=== PATIENT | male | born 1950 | race Caucasian/White ===

== ENCOUNTER 2018-07-25 08:52 | Inpatient (IN) | payer MEDICARE ==
[~2018-07-25] VITALS: Ht 177.8 cm; Wt 84.6 kg
[2018-07-25] MEDS ORDERED: SODIUM CHLORIDE FLUSH 10ML SYR IVF ONE (09:30)
[2018-07-25 09:58] LABS: MEAN CORPUSCULAR HEMOGLOBIN 33.3 pg (27.5-34.5); MEAN CORPUSCULAR HGB CONC 32.7 g/dL (33.2-36.2); MEAN CORPUSCULAR VOLUME 101.6 fL (81-97); RED BLOOD COUNT 2.15 x10^6/uL (4.38-5.82)
[2018-07-25 09:59] LABS: INTERNATIONAL NORMALIZED RATIO 1.05 (0.93-1.1)
--- NOTE | 2018-07-25 10:00 | NUR ---
pt upright on gurney awake & comfortable, watching TV, responds approp to staff, NAD, comfort measures provided, at BS, call light within reach.
[2018-07-25 10:30] LABS: PLATELET COUNT 11 x10^3/uL (130-400)
[2018-07-25 10:31] LABS: MD YES
[2018-07-25 10:32] LABS: BAND#(MANUAL) 0.03 x10^3/uL; BANDS%(MANUAL) 1 % (0-7); EOS#(MANUAL) 0.03 x10^3/uL (0.0-0.4); EOS% (MANUAL) 1 % (1-7); LYMPH#(MANUAL) 1.95 x10^3/uL (1-3.4); LYMPHS% (MANUAL) 65 % (22-44); MONOS#(MANUAL) 0.15 x10^3/uL (0.3-2.7); MONOS% (MANUAL) 5 % (2-9); SEG#(MANUAL) 0.84 x10^3/uL (1.8-6.8); SEGS% (MANUAL) 28 % (42-75)
[2018-07-25 10:35] LABS: ANISOCYTOSIS 1+; OVALOCYTES 1+
[2018-07-25 10:36] LABS: POLYCHROMASIA 1+
[2018-07-25 10:37] LABS: <PLATELET ESTIMATE> DECREASED; <PLT MORPHOLOGY> NORMAL PLT MORPH; TEAR DROPS 1+
[2018-07-25] MEDS ORDERED: Ramipril (10:49)
[2018-07-25] MEDS ORDERED: Albuterol Inhaler (10:49)
[2018-07-25] MEDS ORDERED: Hydrochlorothiazide (10:49)
[2018-07-25 10:59] LABS: ALBUMIN 3.5 g/dL (3.4-5.0); ANION GAP 3 mmol/L (5-15); CALCIUM 8.2 mg/dL (8.5-10.1); CHLORIDE 112 mmol/L (98-107); CREATININE 0.99 mg/dL (0.7-1.3)
--- NOTE | 2018-07-25 11:03 | NUR ---
pt remains upright on gurney awake & comfortable, watching TV, responds approp to staff, NAD, comfort measures provided, at BS, call light within reach.
--- NOTE | 2018-07-25 12:03 | NUR ---
pt upright on gurney awake & comfortable, watching TV, responds approp to staff, NAD, comfort measures provided, at BS, call light within reach. [facility] at BS for consult
[2018-07-25] MEDS ORDERED: ONDANSETRON 2MG/ML, 2ML IVPush PRN (12:30)
[2018-07-25] MEDS ORDERED: ACETAMINOPHEN 325 MG TABLET PO PRN (12:30)
[2018-07-25] MEDS ORDERED: ONDANSETRON ODT 4 MG PO PRN (12:30)
--- NOTE | 2018-07-25 13:12 | NUR ---
Pt to be admitted to medical, room 342. Report called to Maddy.
[2018-07-25 13:16] LABS: HEMOGLOBIN A1C 5.2 % (4.2-6.3)
[2018-07-25 13:28] LABS: FOLATE LEVEL 18.3 ng/mL (3.1-17.5); THYROID STIMULATING HORMONE 1.09 mIU/L (0.358-3.740)
[2018-07-25 13:40] VITALS: BP 110/70
[2018-07-25] MEDS: SODIUM CHLORIDE 0.9% 1,000 ML IV SCH (14:12)
[2018-07-25 17:55] LABS: ALBUMIN 3.4 g/dL (3.4-5.0); BILIRUBIN, DIRECT 0.1 mg/dL (0.1-0.2)
[2018-07-25 17:57] LABS: BILIRUBIN,INDIRECT 0.4 mg/dL (0.0-2.0); BILIRUBIN,TOTAL 0.5 mg/dL (0.2-1.0)
[2018-07-25 18:39] LABS: MEAN CORPUSCULAR HGB CONC 33.2 g/dL (33.2-36.2); MEAN CORPUSCULAR VOLUME 102.5 fL (81-97); RED BLOOD COUNT 2.15 x10^6/uL (4.38-5.82); RED CELL DISTRIBUTION WIDTH 19.4 % (9.4-14.8)
[2018-07-25 18:40] LABS: MEAN PLATELET VOLUME 8.7 fL (7.4-10.4)
[2018-07-25 18:42] LABS: MD YES
[2018-07-25 18:43] LABS: PLATELET COUNT 18 x10^3/uL (130-400)
[2018-07-25 18:50] LABS: LYMPH#(MANUAL) 2.44 x10^3/uL (1-3.4); LYMPHS% (MANUAL) 66 % (22-44); MONOS#(MANUAL) 0.07 x10^3/uL (0.3-2.7); MONOS% (MANUAL) 2 % (2-9); SEG#(MANUAL) 1.18 x10^3/uL (1.8-6.8); SEGS% (MANUAL) 32 % (42-75)
[2018-07-25 18:51] LABS: OVALOCYTES 1+; POLYCHROMASIA 1+
[2018-07-25 18:52] LABS: <PLATELET ESTIMATE> DECREASED; <PLT MORPHOLOGY> NORMAL PLT MORPH; TEAR DROPS 1+; TOXIC GRAN 1+
[2018-07-25 19:14] LABS: MICROSCOPIC AUTO
[2018-07-25 19:25] LABS: CULTURE INDICATED? NO
[2018-07-25 20:55] VITALS: BP 113/69
[2018-07-26 01:52] VITALS: BP 96/60
[2018-07-26] MEDS: SODIUM CHLORIDE 0.9% 1,000 ML IV SCH ×2 (01:56→15:58)
[2018-07-26 05:02] LABS: MEAN CORPUSCULAR HEMOGLOBIN 34.8 pg (27.5-34.5); MEAN CORPUSCULAR HGB CONC 33.8 g/dL (33.2-36.2); MEAN CORPUSCULAR VOLUME 103.1 fL (81-97); RED BLOOD COUNT 1.94 x10^6/uL (4.38-5.82); RED CELL DISTRIBUTION WIDTH 19.7 % (9.4-14.8)
[2018-07-26 05:08] LABS: CHLORIDE 115 mmol/L (98-107)
[2018-07-26 05:18] LABS: ALANINE AMINOTRANSFERASE 23 U/L (12-78); ALBUMIN 3.1 g/dL (3.4-5.0); ALKALINE PHOSPHATASE 61 U/L (45-117); ANION GAP 4 mmol/L (5-15); BILIRUBIN,TOTAL 0.4 mg/dL (0.2-1.0); CALCIUM 7.9 mg/dL (8.5-10.1); CHOL/HDL RATIO 4.8; CHOLESTEROL, TOTAL 138 mg/dL (140-239); CREATININE 0.89 mg/dL (0.7-1.3); HDL CHOL % 21 % (26-37); HDL CHOLESTEROL (DIRECT) 29 mg/dL (40-60); LDL CHOLESTEROL,CALCULATED 88 mg/dL (54-169); TOTAL PROTEIN 6.3 g/dL (6.4-8.2); TRIGLYCERIDES 106 mg/dL (50-200); VLDL CHOLESTEROL 21 mg/dL (0-25)
[2018-07-26 06:46] LABS: MD YES; MEAN PLATELET VOLUME 9.2 fL (7.4-10.4)
[2018-07-26 06:48] LABS: PLATELET COUNT 14 x10^3/uL (130-400)
[2018-07-26 06:49] LABS: <PLATELET ESTIMATE> DECREASED; <PLT MORPHOLOGY> NORMAL PLT MORPH; ANISOCYTOSIS 1+; BAND#(MANUAL) 0.03 x10^3/uL; BANDS%(MANUAL) 1 % (0-7); EOS#(MANUAL) 0.03 x10^3/uL (0.0-0.4); EOS% (MANUAL) 1 % (1-7); LYMPH#(MANUAL) 1.97 x10^3/uL (1-3.4); LYMPHS% (MANUAL) 58 % (22-44); MONOS#(MANUAL) 0.14 x10^3/uL (0.3-2.7); MONOS% (MANUAL) 4 % (2-9); NRBC % (MANUAL) 1 % (0-1); OVALOCYTES 1+; POLYCHROMASIA 1+; SEG#(MANUAL) 1.22 x10^3/uL (1.8-6.8); SEGS% (MANUAL) 36 % (42-75); TEAR DROPS 1+
[2018-07-26 06:54] LABS: MICROCYTOSIS 1+
[2018-07-26 09:02] VITALS: BP 109/73
[2018-07-26] MEDS ORDERED: FENTANYL PF 100 MCG/2ML ONE (09:29)
[2018-07-26] MEDS ORDERED: MIDAZOLAM 1 MG/ML, 5ML ONE (09:30)
[2018-07-26] MEDS ORDERED: FLUMAZENIL 0.1 MG/1 ML, 5ML ONE (09:30)
[2018-07-26] MEDS ORDERED: NALOXONE 1 MG/ML, 2ML ONE (09:30)
[2018-07-26] MEDS ORDERED: LIDOCAINE-MPF 1%, 5ML ONE (09:34)
[2018-07-26 14:18] VITALS: BP 115/71
[2018-07-26 14:37] VITALS: BP 119/73
[2018-07-26 15:52] VITALS: BP 117/72
[2018-07-26 19:07] VITALS: BP 108/71
[2018-07-27] VITALS (11 sets, daily range): BP systolic 91–127; BP diastolic 51–76
[2018-07-27] MEDS: SODIUM CHLORIDE 0.9% 1,000 ML IV SCH ×2 (04:12→15:57)
[2018-07-27 04:53] LABS: ALBUMIN 3.3 g/dL (3.4-5.0); ANION GAP 5 mmol/L (5-15); CALCIUM 7.9 mg/dL (8.5-10.1); CHLORIDE 113 mmol/L (98-107)
[2018-07-27 04:58] LABS: ALANINE AMINOTRANSFERASE 26 U/L (12-78); ALKALINE PHOSPHATASE 60 U/L (45-117); BILIRUBIN,TOTAL 0.8 mg/dL (0.2-1.0); CREATININE 0.94 mg/dL (0.7-1.3); TOTAL PROTEIN 6.3 g/dL (6.4-8.2)
[2018-07-27 05:20] LABS: MEAN CORPUSCULAR HEMOGLOBIN 33.2 pg (27.5-34.5); MEAN CORPUSCULAR VOLUME 100.4 fL (81-97); MEAN PLATELET VOLUME 8.7 fL (7.4-10.4); RED CELL DISTRIBUTION WIDTH 20.2 % (9.4-14.8)
[2018-07-27 05:21] LABS: MD YES; PLATELET COUNT 16 x10^3/uL (130-400)
[2018-07-27 05:23] LABS: LYMPH#(MANUAL) 2.01 x10^3/uL (1-3.4); LYMPHS% (MANUAL) 59 % (22-44); MONOS#(MANUAL) 0.27 x10^3/uL (0.3-2.7); MONOS% (MANUAL) 8 % (2-9); SEG#(MANUAL) 1.12 x10^3/uL (1.8-6.8); SEGS% (MANUAL) 33 % (42-75)
[2018-07-27 05:24] LABS: ANISOCYTOSIS 1+; MICROCYTOSIS 1+; OVALOCYTES 1+; POLYCHROMASIA 1+; TEAR DROPS 1+
[2018-07-27 05:25] LABS: <PLATELET ESTIMATE> DECREASED; <PLT MORPHOLOGY> NORMAL PLT MORPH
[2018-07-27] MEDS ORDERED: SODIUM CHLORIDE 0.9%, 500ML IVBOLUS ONE (08:30)
[2018-07-27] MEDS ORDERED: ACETAMINOPHEN 325 MG TABLET PO ONE (11:30)
[2018-07-27] MEDS ORDERED: DIPHENHYDRAMINE 12.5MG/5ML, 10ML UDC PO ONE (11:30)
[2018-07-27] MEDS ORDERED: FAMOTIDINE 20 MG/2 ML IVPush ONE (15:30)
[2018-07-27] MEDS ORDERED: DIPHENHYDRAMINE 25 MG CAPSULE PO ONE (15:30)
[2018-07-27] MEDS ORDERED: SODIUM CHLORIDE 0.9% 500 ML IV SCH (15:30)
== END 2018-07-27 20:30 | disposition home or self-care (01) | DRG 809 ==
LOC: ED 09:54 → EDIP 12:28 → 3NW 13:19
PROVIDERS: ADMIT Internal Medicine; ATTEND Internal Medicine
PROC: 07DR3ZX Extraction of Iliac Bone Marrow, Percutaneous Approach, Diagnostic (ICD-10-PCS; principal; 2018-07-26)
PROC: 30233N1 Transfusion of Nonautologous Red Blood Cells into Peripheral Vein, Percutaneous Approach (ICD-10-PCS; 2018-07-26)
PROC: 30233R1 Transfusion of Nonautologous Platelets into Peripheral Vein, Percutaneous Approach (ICD-10-PCS; 2018-07-27)
DX: D61.818 Other pancytopenia (principal); B15.9 Hepatitis A without hepatic coma; B19.10 Unspecified viral hepatitis B without hepatic coma; T80.61XA Other serum reaction due to administration of blood and blood products, initial encounter; D75.89 Other specified diseases of blood and blood-forming organs; B19.20 Unspecified viral hepatitis C without hepatic coma; D53.9 Nutritional anemia, unspecified; E11.65 Type 2 diabetes mellitus with hyperglycemia; F12.90 Cannabis use, unspecified, uncomplicated; J45.909 Unspecified asthma, uncomplicated; N40.0 Benign prostatic hyperplasia without lower urinary tract symptoms; Z82.49 Family history of ischemic heart disease and other diseases of the circulatory system; Z87.891 Personal history of nicotine dependence; Z83.3 Family history of diabetes mellitus; I25.2 Old myocardial infarction; T45.8X5A Adverse effect of other primarily systemic and hematological agents, initial encounter
CPT/HCPCS: 36415; 38222; 77012; 80048; 80053; 80061; 80076; 81001; 82040; 82607; 82728; 82746; 83010; 83036; 83540; 83550; 83615; 83735; 84100; 84443; 84466; 84550; 85025; 85060; 85097; 85384; 85610; 85730; 86078; 86704; 86706; 86803; 86850; 86900; 86923; 87040; 87205; 87340; 87521; 87522; 87806; 88184; 88185; 88237; 88264; 88280; 88305; 88311; 88313; 88341; 88342; 88374; 99156; 99157; 99285; G0378; J2250; J3010; G0475; J2310; J3490; J7030; J7040; P9037; P9040; Q0163

== ENCOUNTER 2018-12-07 07:15 | Day surgery (SDC) | payer MEDICARE ==
[~2018-12-07] VITALS: Ht 177.8 cm; Wt 83.6 kg
[~2018-12-07 07:15] MED LIST: Albuterol Inhaler; ERGO500017 PO; GLEC1TAB PO; Hydrochlorothiazide; Ramipril
[2018-12-07 08:13] VITALS: BP 118/83
[2018-12-07] MEDS ORDERED: MULT1CAP19 PO (08:15)
[2018-12-07] MEDS ORDERED: SODIUM CHLORIDE 0.9% 1,000 ML IV SCH (08:31)
[2018-12-07] MEDS ORDERED: MIDAZOLAM 1 MG/ML, 5ML ONE (09:20)
[2018-12-07] MEDS ORDERED: FLUMAZENIL 0.1 MG/1 ML, 5ML ONE (09:20)
[2018-12-07] MEDS ORDERED: FENTANYL PF 100 MCG/2ML ONE (09:20)
[2018-12-07] MEDS ORDERED: NALOXONE 1 MG/ML, 2ML ONE (09:20)
[2018-12-07 09:21] LABS: MEAN CORPUSCULAR HEMOGLOBIN 32.9 pg (27.5-34.5); MEAN CORPUSCULAR HGB CONC 33.1 g/dL (33.2-36.2); MEAN CORPUSCULAR VOLUME 99.4 fL (81-97); RED BLOOD COUNT 2.64 x10^6/uL (4.38-5.82); RED CELL DISTRIBUTION WIDTH 18.1 % (9.4-14.8)
[2018-12-07] MEDS ORDERED: LIDOCAINE-MPF 1%, 5ML ONE (09:25)
[2018-12-07 09:52] LABS: BASOPHILS # (AUTO) 0.01 x10^3/uL (0-0.1); BASOPHILS % (AUTO) 0 % (0-1); EOSINOPHILS # (AUTO) 0.02 x10^3/uL (0-0.4); EOSINOPHILS % (AUTO) 1 % (1-7); LYMPHOCYTES # (AUTO) 2.58 x10^3/uL (1-3.4); LYMPHOCYTES % (AUTO) 64 % (22-44); MD SCAN; MONOCYTES # (AUTO) 0.21 x10^3/uL (0.2-0.8); MONOCYTES % (AUTO) 5 % (2-9); NEUTROPHILS # (AUTO) 1.25 x10^3/uL (1.8-6.8); NEUTROPHILS % (AUTO) 31 % (42-75)
[2018-12-07 10:04] LABS: PLATELET COUNT 14 x10^3/uL (130-400)
== END 2018-12-07 12:50 | disposition home or self-care (01) ==
LOC: OUT 07:15
PROVIDERS: ATTEND Internal Medicine Hematology & Oncology
DX: D61.818 Other pancytopenia (principal); D53.9 Nutritional anemia, unspecified; F19.90 Other psychoactive substance use, unspecified, uncomplicated; Z86.19 Personal history of other infectious and parasitic diseases; Z87.891 Personal history of nicotine dependence; Z72.89 Other problems related to lifestyle
CPT/HCPCS: 36415; 38222; 77012; 85025; 85060; 85097; 88237; 88264; 88280; 88305; 88311; 88313; 99156; 99157; J2250; J3010; J7030; J2310

== ENCOUNTER 2019-01-28 19:19 | Inpatient (IN) | payer MEDICARE ==
[~2019-01-28] VITALS: Ht 177.8 cm; Wt 84.0 kg
[~2019-01-28 19:19] MED LIST changes: +MULT1CAP19 PO
--- NOTE | 2019-01-28 19:35 | NUR ---
FULLY MONITORED. SR.
[2019-01-28] MEDS ORDERED: SODIUM CHLORIDE FLUSH 10ML SYR IVF ONE (20:00)
[2019-01-28] MEDS ORDERED: SODIUM CHLORIDE 0.9% 1,000ML IVBOLUS ONE (20:00)
[2019-01-28 20:19] LABS: ALANINE AMINOTRANSFERASE 14 U/L (12-78); ALBUMIN 3.5 g/dL (3.4-5.0); ANION GAP 6 mmol/L (5-15); CALCIUM 8.5 mg/dL (8.5-10.1); CHLORIDE 110 mmol/L (98-107); CREATININE 1.09 mg/dL (0.7-1.3)
[2019-01-28 20:21] LABS: ALKALINE PHOSPHATASE 65 U/L (45-117); BILIRUBIN,TOTAL 0.4 mg/dL (0.2-1.0); TOTAL PROTEIN 7.1 g/dL (6.4-8.2)
[2019-01-28 20:38] LABS: MD YES; MEAN CORPUSCULAR HEMOGLOBIN 31.1 pg (27.5-34.5); MEAN CORPUSCULAR VOLUME 91.4 fL (81-97); MEAN PLATELET VOLUME 9.2 fL (7.4-10.4); RED BLOOD COUNT 2.23 x10^6/uL (4.38-5.82); RED CELL DISTRIBUTION WIDTH 21.5 % (9.4-14.8)
[2019-01-28 20:42] LABS: PLATELET COUNT 48 x10^3/uL (130-400)
[2019-01-28 20:47] LABS: ANISOCYTOSIS 1+; LYMPHS% (MANUAL) 100 % (22-44); MICROCYTOSIS 1+; POLYCHROMASIA 1+
[2019-01-28 20:48] LABS: <PLATELET ESTIMATE> DECREASED; <PLT MORPHOLOGY> NORMAL PLT MORPH
--- NOTE | 2019-01-28 21:26 | NUR ---
PLACED IN REVERSE ISO. MASKS IN ROOM.
--- NOTE | 2019-01-28 21:27 | NUR ---
CC UA SENT TO THE LAB.
[2019-01-28 21:36] LABS: MICROSCOPIC NOT IND
[2019-01-28 21:39] LABS: CULTURE INDICATED? NO
[2019-01-28] MEDS ORDERED: SODIUM CHLORIDE 0.9% 1,000 ML IV ONE (21:40)
--- NOTE | 2019-01-28 21:52 | NUR ---
BLOOD CONSENT SIGNED.
[2019-01-28] MEDS: CEFEPIME 1 GM in DEXTROSE 5% 50 ML IV SCH ×2 (21:59→22:33)
[2019-01-28] MEDS ORDERED: CEFEPIME 1 GM in DEXTROSE 5% 50 ML IV ONE (22:00)
[2019-01-28] MEDS ORDERED: SODIUM CHLORIDE FLUSH 10ML SYR IVF PRN (22:00)
--- NOTE | 2019-01-28 22:01 | NUR ---
MAXIPINE INFUSING TO THE FLOOR.
--- NOTE | 2019-01-28 22:05 | NUR ---
MED REC COMPLETED.
--- NOTE | 2019-01-28 22:06 | NUR ---
ID OF MAXIPINE STARTED. WILL FINISH INPT.
[2019-01-28 22:30] VITALS: BP 127/72
[2019-01-28] MEDS: SODIUM CHLORIDE 0.9% 1,000 ML IV SCH (22:32)
[2019-01-28] MEDS: LIDODERM 5% PATCH TD SCH (22:38)
[2019-01-28] MEDS: ACETAMINOPHEN 325 MG TABLET PO PRN (23:19)
[2019-01-28 23:21] VITALS: BP 118/68
[2019-01-28 23:45] VITALS: BP 129/71
[2019-01-29] VITALS (13 sets, daily range): BP systolic 105–128; BP diastolic 62–74
[2019-01-29 05:24] LABS: CHLORIDE 111 mmol/L (98-107); MEAN CORPUSCULAR HEMOGLOBIN 30.5 pg (27.5-34.5); MEAN CORPUSCULAR HGB CONC 34.1 g/dL (33.2-36.2); MEAN CORPUSCULAR VOLUME 89.4 fL (81-97); MEAN PLATELET VOLUME 9.3 fL (7.4-10.4); RED BLOOD COUNT 2.73 x10^6/uL (4.38-5.82); RED CELL DISTRIBUTION WIDTH 20.8 % (9.4-14.8)
[2019-01-29 05:27] LABS: PLATELET COUNT 43 x10^3/uL (130-400)
[2019-01-29 05:30] LABS: ALANINE AMINOTRANSFERASE 12 U/L (12-78); ALBUMIN 3.1 g/dL (3.4-5.0); ALKALINE PHOSPHATASE 52 U/L (45-117); ANION GAP 4 mmol/L (5-15); BILIRUBIN,TOTAL 1.1 mg/dL (0.2-1.0); CALCIUM 8.3 mg/dL (8.5-10.1); CREATININE 0.91 mg/dL (0.7-1.3); TOTAL PROTEIN 6.5 g/dL (6.4-8.2)
[2019-01-29 05:45] LABS: MD YES
[2019-01-29 05:48] LABS: ANISOCYTOSIS 1+; EOS#(MANUAL) 0.02 x10^3/uL (0.0-0.4); EOS% (MANUAL) 1 % (1-7); LYMPH#(MANUAL) 2.09 x10^3/uL (1-3.4); LYMPHS% (MANUAL) 95 % (22-44); MONOS#(MANUAL) 0.02 x10^3/uL (0.3-2.7); MONOS% (MANUAL) 1 % (2-9); NRBC % (MANUAL) 1 % (0-1); SEG#(MANUAL) 0.07 x10^3/uL (1.8-6.8); SEGS% (MANUAL) 3 % (42-75)
[2019-01-29 05:49] LABS: <PLATELET ESTIMATE> DECREASED; <PLT MORPHOLOGY> NORMAL PLT MORPH; MICROCYTOSIS 1+; OVALOCYTES 1+
[2019-01-29] MEDS: CEFEPIME 1 GM in DEXTROSE 5% 50 ML IV SCH ×2 (06:25→14:09)
[2019-01-29] MEDS: LIDODERM REMOVE PATCH NOTE XX SCH ×2 (09:38→22:30)
[2019-01-29] MEDS: ACETAMINOPHEN 325 MG TABLET PO PRN (12:58)
[2019-01-29] MEDS: SODIUM CHLORIDE 0.9% 1,000 ML IV SCH (16:04)
[2019-01-29 16:28] LABS: TROPONIN I < 0.015 ng/mL (0.000-0.045)
[2019-01-29] MEDS ORDERED: VANCOMYCIN PER PHARMACY MC PRN (16:30)
[2019-01-29] MEDS ORDERED: PHARMACOKINETIC MONITORING MC PRN (16:30)
[2019-01-29] MEDS ORDERED: VANCOMYCIN 1,700 MG in SODIUM CHLORIDE 0.9% 250 ML IV SCH (16:30)
[2019-01-29] MEDS ORDERED: VANCOMYCIN PMX 1GM/200ML 200 ML IV ONE (16:30)
[2019-01-29] MEDS ORDERED: OMNIPAQUE 350 MG/ML, 100ML BOTTLE ONE (16:38)
[2019-01-29] MEDS: PIPERACILLIN/TAZO/PMX 3.375GM 50 ML IV SCH ×2 (17:00→22:33)
[2019-01-29] MEDS ORDERED: HYDROcodone/APAP 5/325 TABLET ONE (17:09)
[2019-01-29] MEDS: HYDROcodone/APAP 5/325 TABLET PO PRN ×2 (17:10→20:50)
[2019-01-29] MEDS ORDERED: MORPHINE SULFATE 4 MG/ML, 1ML IVPush PRN (17:30)
[2019-01-29] MEDS ORDERED: KETOROLAC 30 MG/1 ML IVPush PRN (17:30)
[2019-01-29 22:27] LABS: TROPONIN I < 0.015 ng/mL (0.000-0.045)
[2019-01-29] MEDS: LIDODERM 5% PATCH TD SCH (22:30)
[2019-01-30 01:25] VITALS: BP 120/67
[2019-01-30] MEDS: PIPERACILLIN/TAZO/PMX 3.375GM 50 ML IV SCH ×4 (04:32→22:31)
[2019-01-30] MEDS: SODIUM CHLORIDE 0.9% 1,000 ML IV SCH ×2 (04:32→18:43)
[2019-01-30 04:44] LABS: ALANINE AMINOTRANSFERASE 9 U/L (12-78); ALBUMIN 2.7 g/dL (3.4-5.0); ANION GAP 2 mmol/L (5-15); CHLORIDE 113 mmol/L (98-107); CREATININE 0.95 mg/dL (0.7-1.3)
[2019-01-30 04:48] LABS: MEAN CORPUSCULAR HEMOGLOBIN 30.2 pg (27.5-34.5); MEAN CORPUSCULAR HGB CONC 33.6 g/dL (33.2-36.2); MEAN CORPUSCULAR VOLUME 89.7 fL (81-97); RED BLOOD COUNT 2.58 x10^6/uL (4.38-5.82); RED CELL DISTRIBUTION WIDTH 20.9 % (9.4-14.8)
[2019-01-30 04:49] LABS: ALKALINE PHOSPHATASE 45 U/L (45-117); BILIRUBIN,TOTAL 0.8 mg/dL (0.2-1.0); TOTAL PROTEIN 6.1 g/dL (6.4-8.2); TROPONIN I < 0.015 ng/mL (0.000-0.045)
[2019-01-30 05:43] LABS: MEAN PLATELET VOLUME 8.1 fL (7.4-10.4)
[2019-01-30 05:44] LABS: PLATELET COUNT 33 x10^3/uL (130-400)
[2019-01-30 05:53] LABS: MD YES
[2019-01-30 05:58] LABS: LYMPH#(MANUAL) 2.13 x10^3/uL (1-3.4); LYMPHS% (MANUAL) 97 % (22-44); MONOS#(MANUAL) 0.02 x10^3/uL (0.3-2.7); MONOS% (MANUAL) 1 % (2-9); SEG#(MANUAL) 0.04 x10^3/uL (1.8-6.8); SEGS% (MANUAL) 2 % (42-75)
[2019-01-30 05:59] LABS: <PLATELET ESTIMATE> DECREASED; <PLT MORPHOLOGY> NORMAL PLT MORPH; ANISOCYTOSIS 1+; MICROCYTOSIS 1+
[2019-01-30 06:50] VITALS: BP 109/65
[2019-01-30] MEDS: LIDODERM REMOVE PATCH NOTE XX SCH ×2 (09:57→22:30)
[2019-01-30 12:30] VITALS: BP 111/65
[2019-01-30] MEDS: VANCOMYCIN 1,700 MG in SODIUM CHLORIDE 0.9% 250 ML IV SCH (15:17)
[2019-01-30] MEDS: ACETAMINOPHEN 325 MG TABLET PO PRN (17:05)
[2019-01-30 20:00] VITALS: BP 111/66
[2019-01-30] MEDS: HYDROcodone/APAP 5/325 TABLET PO PRN (20:53)
[2019-01-30] MEDS: LIDODERM 5% PATCH TD SCH (22:30)
[2019-01-31 02:02] VITALS: BP 107/69
[2019-01-31 04:48] LABS: ANION GAP 6 mmol/L (5-15); CHLORIDE 113 mmol/L (98-107); CREATININE 0.97 mg/dL (0.7-1.3)
[2019-01-31] MEDS: PIPERACILLIN/TAZO/PMX 3.375GM 50 ML IV SCH ×3 (05:03→22:41)
[2019-01-31 05:48] LABS: MEAN CORPUSCULAR HEMOGLOBIN 30.3 pg (27.5-34.5); MEAN CORPUSCULAR HGB CONC 33.7 g/dL (33.2-36.2); RED BLOOD COUNT 2.47 x10^6/uL (4.38-5.82)
[2019-01-31 05:50] LABS: PLATELET COUNT 26 x10^3/uL (130-400); RED CELL DISTRIBUTION WIDTH 20.9 % (9.4-14.8)
[2019-01-31 05:51] LABS: MD YES
[2019-01-31 05:55] LABS: <PLATELET ESTIMATE> DECREASED; <PLT MORPHOLOGY> NORMAL PLT MORPH; ANISOCYTOSIS 1+; BAND#(MANUAL) 0.02 x10^3/uL; BANDS%(MANUAL) 1 % (0-7); LYMPH#(MANUAL) 2.09 x10^3/uL (1-3.4); LYMPHS% (MANUAL) 95 % (22-44); MICROCYTOSIS 1+; MONOS#(MANUAL) 0.02 x10^3/uL (0.3-2.7); MONOS% (MANUAL) 1 % (2-9); SEG#(MANUAL) 0.07 x10^3/uL (1.8-6.8); SEGS% (MANUAL) 3 % (42-75); SMUDGE CELLS 1+
[2019-01-31 05:56] LABS: OVALOCYTES 1+
[2019-01-31 08:36] VITALS: BP 104/66
[2019-01-31] MEDS: SODIUM CHLORIDE 0.9% 1,000 ML IV SCH (08:39)
[2019-01-31] MEDS: LIDODERM REMOVE PATCH NOTE XX SCH ×2 (10:30→22:30)
[2019-01-31] MEDS: VANCOMYCIN 1,700 MG in SODIUM CHLORIDE 0.9% 250 ML IV SCH (12:20)
[2019-01-31] MEDS: LIDODERM 5% PATCH TD SCH ×2 (12:21→22:30)
[2019-01-31 12:56] VITALS: BP 123/75
[2019-01-31 20:05] VITALS: BP 119/75
[2019-02-01] MEDS: SODIUM CHLORIDE 0.9% 1,000 ML IV SCH ×2 (01:10→09:44)
[2019-02-01 01:14] VITALS: BP 121/71
[2019-02-01] MEDS: PIPERACILLIN/TAZO/PMX 3.375GM 50 ML IV SCH ×2 (04:23→09:43)
[2019-02-01] MEDS: VANCOMYCIN 1,700 MG in SODIUM CHLORIDE 0.9% 250 ML IV SCH (06:13)
[2019-02-01 08:01] VITALS: BP 126/78
[2019-02-01 08:32] LABS: ALANINE AMINOTRANSFERASE 11 U/L (12-78); ALBUMIN 2.8 g/dL (3.4-5.0); ANION GAP 7 mmol/L (5-15); CALCIUM 8.3 mg/dL (8.5-10.1); CHLORIDE 112 mmol/L (98-107); CREATININE 1.08 mg/dL (0.7-1.3)
[2019-02-01 08:34] LABS: ALKALINE PHOSPHATASE 43 U/L (45-117); BILIRUBIN,TOTAL 0.6 mg/dL (0.2-1.0); TOTAL PROTEIN 6.5 g/dL (6.4-8.2)
[2019-02-01 08:38] LABS: MEAN CORPUSCULAR HEMOGLOBIN 29.9 pg (27.5-34.5); MEAN CORPUSCULAR HGB CONC 33.2 g/dL (33.2-36.2); MEAN CORPUSCULAR VOLUME 89.9 fL (81-97); MEAN PLATELET VOLUME 9.6 fL (7.4-10.4); RED BLOOD COUNT 2.66 x10^6/uL (4.38-5.82); RED CELL DISTRIBUTION WIDTH 20.7 % (9.4-14.8)
[2019-02-01 09:32] LABS: MD YES
[2019-02-01 09:34] LABS: LYMPH#(MANUAL) 2.16 x10^3/uL (1-3.4); LYMPHS% (MANUAL) 94 % (22-44); SEG#(MANUAL) 0.14 x10^3/uL (1.8-6.8); SEGS% (MANUAL) 6 % (42-75)
[2019-02-01 09:35] LABS: <PLATELET ESTIMATE> DECREASED; <PLT MORPHOLOGY> NORMAL PLT MORPH; ANISOCYTOSIS 1+; MICROCYTOSIS 1+; OVALOCYTES 1+
[2019-02-01 09:38] LABS: PLATELET COUNT 24 x10^3/uL (130-400)
[2019-02-01] MEDS: LIDODERM REMOVE PATCH NOTE XX SCH (09:44)
[2019-02-01] MEDS ORDERED: LEVO500T47 PO (11:57)
[2019-02-01] MEDS ORDERED: VANCOMYCIN 1,400 MG in SODIUM CHLORIDE 0.9% 250 ML IV SCH (16:00)
[2019-02-09] MEDS ORDERED: VORI200T2 PO (14:10)
== END 2019-02-01 13:42 | disposition home or self-care (01) | DRG 809 ==
LOC: ED 19:42 → EDIP 21:40 → 4NW 22:19 → 4EST 01-29 17:24 → 4NE 01-30 22:55
PROVIDERS: ADMIT Family Medicine; ATTEND Internal Medicine
PROC: 30233N1 Transfusion of Nonautologous Red Blood Cells into Peripheral Vein, Percutaneous Approach (ICD-10-PCS; principal; 2019-01-28)
DX: D61.810 Antineoplastic chemotherapy induced pancytopenia (principal); R65.10 Systemic inflammatory response syndrome (SIRS) of non-infectious origin without acute organ dysfunction; D46.9 Myelodysplastic syndrome, unspecified; T45.1X5A Adverse effect of antineoplastic and immunosuppressive drugs, initial encounter; E86.0 Dehydration; R50.81 Fever presenting with conditions classified elsewhere; Z87.891 Personal history of nicotine dependence
CPT/HCPCS: 36415; 36430; 71045; 71275; 80048; 80053; 80202; 81003; 83605; 83735; 84100; 84145; 84484; 85025; 86850; 86900; 86923; 87040; 93005; 96360; G0378; J0692; J1885; J2543; J3370; Q9967; J7030; J7050; P9040

== ENCOUNTER 2019-03-16 18:38 | Inpatient (IN) | payer MEDICARE ==
[~2019-03-16] VITALS: Ht 177.8 cm; Wt 81.8 kg
[~2019-03-16 18:38] MED LIST changes: +LEVO500T47 PO; +VORI200T2 PO
[2019-03-16] MEDS ORDERED: ACETAMINOPHEN 500 MG TABLET ONE (19:47)
[2019-03-16] MEDS ORDERED: SODIUM CHLORIDE FLUSH 10ML SYR IVF ONE (20:00)
[2019-03-16] MEDS ORDERED: ACETAMINOPHEN 500 MG TABLET PO ONE (20:00)
[2019-03-16] MEDS ORDERED: SODIUM CHLORIDE 0.9% 1,000ML IVBOLUS ONE (20:00)
[2019-03-16 20:17] LABS: RAPID INFLUENZA A Negative (Negative); RAPID INFLUENZA B Negative (Negative)
--- NOTE | 2019-03-16 20:21 | NUR ---
pt wearing a mask in room and prior in lobby to help prevent infection from others
[2019-03-16 20:35] LABS: ALBUMIN 3.2 g/dL (3.4-5.0); ANION GAP 6 mmol/L (5-15); CALCIUM 8.3 mg/dL (8.5-10.1); CHLORIDE 111 mmol/L (98-107); CREATININE 1.19 mg/dL (0.7-1.3)
[2019-03-16 20:46] LABS: MEAN CORPUSCULAR HEMOGLOBIN 31.6 pg (27.5-34.5); MEAN CORPUSCULAR HGB CONC 33.7 g/dL (33.2-36.2); MEAN CORPUSCULAR VOLUME 93.6 fL (81-97); RED BLOOD COUNT 2.34 x10^6/uL (4.38-5.82); RED CELL DISTRIBUTION WIDTH 20.6 % (9.4-14.8)
[2019-03-16] MEDS ORDERED: CEFTRIAXONE PMX 1GM/50ML 50 ML ONE (20:52)
[2019-03-16] MEDS ORDERED: PIPERACILLIN/TAZO/PMX 3.375GM 50 ML ONE (20:57)
[2019-03-16] MEDS ORDERED: PIPERACILLIN/TAZO/PMX 3.375GM 50 ML IV ONE (21:00)
[2019-03-16] MEDS ORDERED: CEFTRIAXONE PMX 1GM/50ML 50 ML IV ONE (21:00)
[2019-03-16 21:04] LABS: MD YES
[2019-03-16 21:05] LABS: MEAN PLATELET VOLUME 9.3 fL (7.4-10.4)
[2019-03-16 21:08] LABS: PLATELET COUNT 23 x10^3/uL (130-400)
[2019-03-16 21:16] LABS: LYMPH#(MANUAL) 1.33 x10^3/uL (1-3.4); LYMPHS% (MANUAL) 70 % (22-44); METAMYELOCYTES# (MANUAL) 0.02 x10^3/uL (0-0); METAMYELOCYTES% (MANUAL) 1 % (0-1); MONOS% (MANUAL) 5 % (2-9); SEG#(MANUAL) 0.46 x10^3/uL (1.8-6.8); SEGS% (MANUAL) 24 % (42-75)
[2019-03-16 21:17] LABS: ANISOCYTOSIS 1+; MICROCYTOSIS 1+; OVALOCYTES 1+; POLYCHROMASIA 1+
[2019-03-16 21:18] LABS: <PLATELET ESTIMATE> DECREASED; <PLT MORPHOLOGY> NORMAL PLT MORPH
[2019-03-16 21:43] VITALS: BP 108/51
[2019-03-16] MEDS ORDERED: PROMETHAZINE 25 MG/ML, 1ML IM PRN (23:00)
[2019-03-16] MEDS ORDERED: ACETAMINOPHEN 325 MG TABLET PO PRN (23:00)
[2019-03-16] MEDS ORDERED: LABETALOL 5 MG/ML SYR. (IV ONLY) IVPush PRN (23:00)
[2019-03-16] MEDS ORDERED: ONDANSETRON 2MG/ML, 2ML IVPush PRN (23:00)
[2019-03-16] MEDS: LACTATED RINGERS 1,000 ML IV SCH (23:34)
[2019-03-16 23:44] LABS: MICROSCOPIC NOT IND
[2019-03-16 23:46] LABS: CULTURE INDICATED? NO
[2019-03-17 02:15] VITALS: BP 100/63
[2019-03-17] MEDS: PIPERACILLIN/TAZO/PMX 3.375GM 50 ML IV SCH ×4 (02:39→20:49)
[2019-03-17 04:42] LABS: MEAN CORPUSCULAR HEMOGLOBIN 30.8 pg (27.5-34.5); MEAN CORPUSCULAR HGB CONC 32.9 g/dL (33.2-36.2); MEAN CORPUSCULAR VOLUME 93.4 fL (81-97); MEAN PLATELET VOLUME 9.7 fL (7.4-10.4); RED BLOOD COUNT 2.28 x10^6/uL (4.38-5.82); RED CELL DISTRIBUTION WIDTH 20.6 % (9.4-14.8)
[2019-03-17 04:47] LABS: PLATELET COUNT 19 x10^3/uL (130-400)
[2019-03-17 05:18] LABS: MD YES
[2019-03-17 05:30] LABS: ANISOCYTOSIS 1+; BAND#(MANUAL) 0.03 x10^3/uL; BANDS%(MANUAL) 1 % (0-7); EOS#(MANUAL) 0.06 x10^3/uL (0.0-0.4); EOS% (MANUAL) 2 % (1-7); LYMPH#(MANUAL) 2.46 x10^3/uL (1-3.4); LYMPHS% (MANUAL) 82 % (22-44); MICROCYTOSIS 1+; MONOS#(MANUAL) 0.18 x10^3/uL (0.3-2.7); MONOS% (MANUAL) 6 % (2-9); SEG#(MANUAL) 0.27 x10^3/uL (1.8-6.8); SEGS% (MANUAL) 9 % (42-75)
[2019-03-17 05:31] LABS: <PLATELET ESTIMATE> DECREASED; <PLT MORPHOLOGY> NORMAL PLT MORPH; HYPOCHROMIA 1+; OVALOCYTES 1+; POLYCHROMASIA 1+; TEAR DROPS 1+
[2019-03-17 08:12] VITALS: BP 125/71
[2019-03-17] MEDS: LACTATED RINGERS 1,000 ML IV SCH (08:32)
[2019-03-17 13:50] VITALS: BP 106/68
[2019-03-17 19:35] VITALS: BP 105/58
[2019-03-17] MEDS: DOCUSATE 100 MG CAPSULE PO SCH (20:49)
[2019-03-18] MEDS: PIPERACILLIN/TAZO/PMX 3.375GM 50 ML IV SCH ×4 (02:43→21:12)
[2019-03-18 02:45] VITALS: BP 115/97
[2019-03-18 05:28] LABS: CHLORIDE 111 mmol/L (98-107)
[2019-03-18 05:28] LABS: MEAN CORPUSCULAR HEMOGLOBIN 31.5 pg (27.5-34.5); MEAN CORPUSCULAR HGB CONC 33.6 g/dL (33.2-36.2); MEAN CORPUSCULAR VOLUME 93.7 fL (81-97); MEAN PLATELET VOLUME 9.5 fL (7.4-10.4); RED BLOOD COUNT 2.21 x10^6/uL (4.38-5.82); RED CELL DISTRIBUTION WIDTH 21.2 % (9.4-14.8)
[2019-03-18 05:36] LABS: PLATELET COUNT 20 x10^3/uL (130-400)
[2019-03-18 05:37] LABS: HCT (SEDRATE) 20.7 % (39.2-51.8)
[2019-03-18 05:41] LABS: ANION GAP 6 mmol/L (5-15); CALCIUM 8.3 mg/dL (8.5-10.1); CREATININE 0.98 mg/dL (0.7-1.3)
[2019-03-18 06:06] LABS: MD YES
[2019-03-18 06:09] LABS: <PLATELET ESTIMATE> DECREASED; <PLT MORPHOLOGY> NORMAL PLT MORPH; ANISOCYTOSIS 1+; BAND#(MANUAL) 0.06 x10^3/uL; BANDS%(MANUAL) 2 % (0-7); HYPOCHROMIA 1+; LYMPH#(MANUAL) 2.26 x10^3/uL (1-3.4); LYMPHS% (MANUAL) 78 % (22-44); MICROCYTOSIS 1+; MONOS#(MANUAL) 0.17 x10^3/uL (0.3-2.7); MONOS% (MANUAL) 6 % (2-9); OVALOCYTES 1+; POLYCHROMASIA 1+; SEG#(MANUAL) 0.41 x10^3/uL (1.8-6.8); SEGS% (MANUAL) 14 % (42-75); TEAR DROPS 1+
[2019-03-18 07:24] VITALS: BP 108/63
[2019-03-18] MEDS: DOCUSATE 100 MG CAPSULE PO SCH ×2 (08:42→21:00)
[2019-03-18] MEDS ORDERED: HEMORRHOIDAL OINT, 28 GM (PREP H) RC PRN (11:00)
[2019-03-18] MEDS ORDERED: POLYETHYLENE GLYCOL 17 GM PACKET NG ONE (11:00)
[2019-03-18 12:50] VITALS: BP 107/71
[2019-03-18 18:57] VITALS: BP 107/68
[2019-03-19] MEDS: PIPERACILLIN/TAZO/PMX 3.375GM 50 ML IV SCH ×4 (03:18→21:10)
[2019-03-19 03:23] VITALS: BP 96/69
[2019-03-19 04:45] LABS: MEAN CORPUSCULAR HEMOGLOBIN 31.5 pg (27.5-34.5); MEAN CORPUSCULAR HGB CONC 33.2 g/dL (33.2-36.2); MEAN CORPUSCULAR VOLUME 94.8 fL (81-97); MEAN PLATELET VOLUME 10.2 fL (7.4-10.4); RED BLOOD COUNT 2.22 x10^6/uL (4.38-5.82); RED CELL DISTRIBUTION WIDTH 21.4 % (9.4-14.8)
[2019-03-19 04:47] LABS: ANION GAP 6 mmol/L (5-15); CALCIUM 8.3 mg/dL (8.5-10.1); CHLORIDE 112 mmol/L (98-107); CREATININE 1.04 mg/dL (0.7-1.3)
[2019-03-19 04:51] LABS: PLATELET COUNT 17 x10^3/uL (130-400)
[2019-03-19 05:10] LABS: MD YES
[2019-03-19 05:14] LABS: ANISOCYTOSIS 1+; BAND#(MANUAL) 0.04 x10^3/uL; BANDS%(MANUAL) 1 % (0-7); EOS#(MANUAL) 0.04 x10^3/uL (0.0-0.4); EOS% (MANUAL) 1 % (1-7); HYPOCHROMIA 1+; LYMPH#(MANUAL) 2.66 x10^3/uL (1-3.4); LYMPHS% (MANUAL) 76 % (22-44); MICROCYTOSIS 1+; MONOS#(MANUAL) 0.18 x10^3/uL (0.3-2.7); MONOS% (MANUAL) 5 % (2-9); NRBC % (MANUAL) 1 % (0-1); OVALOCYTES 1+; POLYCHROMASIA 1+; SEGS% (MANUAL) 17 % (42-75); TEAR DROPS 1+
[2019-03-19 05:15] LABS: <PLATELET ESTIMATE> DECREASED; <PLT MORPHOLOGY> QNS FOR PLT MORPH
[2019-03-19 06:32] VITALS: BP 101/75
[2019-03-19] MEDS: DOCUSATE 100 MG CAPSULE PO SCH ×2 (09:31→21:10)
[2019-03-19 12:10] VITALS: BP 109/72
[2019-03-19 18:41] VITALS: BP 107/69
[2019-03-20] MEDS: PIPERACILLIN/TAZO/PMX 3.375GM 50 ML IV SCH ×3 (03:28→15:26)
[2019-03-20 03:29] VITALS: BP 100/66
[2019-03-20 04:57] LABS: ANION GAP 4 mmol/L (5-15); CALCIUM 8.4 mg/dL (8.5-10.1); CHLORIDE 111 mmol/L (98-107); CREATININE 1.08 mg/dL (0.7-1.3)
[2019-03-20 06:04] LABS: MEAN CORPUSCULAR HGB CONC 34.1 g/dL (33.2-36.2); MEAN CORPUSCULAR VOLUME 93.6 fL (81-97); MEAN PLATELET VOLUME 8.9 fL (7.4-10.4); RED BLOOD COUNT 2.22 x10^6/uL (4.38-5.82)
[2019-03-20 06:05] LABS: MD YES
[2019-03-20 06:06] LABS: PLATELET COUNT 19 x10^3/uL (130-400)
[2019-03-20 06:16] LABS: LYMPH#(MANUAL) 2.44 x10^3/uL (1-3.4); LYMPHS% (MANUAL) 74 % (22-44); MONOS#(MANUAL) 0.26 x10^3/uL (0.3-2.7); MONOS% (MANUAL) 8 % (2-9); SEG#(MANUAL) 0.59 x10^3/uL (1.8-6.8); SEGS% (MANUAL) 18 % (42-75)
[2019-03-20 06:17] LABS: <PLATELET ESTIMATE> DECREASED; ANISOCYTOSIS 1+; HYPOCHROMIA 1+; MICROCYTOSIS 1+; OVALOCYTES 1+; TEAR DROPS 1+
[2019-03-20 06:18] LABS: <PLT MORPHOLOGY> NORMAL PLT MORPH; POLYCHROMASIA 1+
[2019-03-20 06:44] VITALS: BP 116/58
[2019-03-20] MEDS: DOCUSATE 100 MG CAPSULE PO SCH (09:07)
[2019-03-20 12:18] VITALS: BP 107/80
[2019-03-20] MEDS ORDERED: DIPHENHYDRAMINE 50 MG/ML, 1ML IVPush ONE (15:30)
[2019-03-20] MEDS ORDERED: HYDROCORTISONE 100 MG INJ. IVPush ONE (15:30)
[2019-03-20] MEDS ORDERED: ACETAMINOPHEN 325 MG TABLET PO ONE (15:30)
[2019-03-20] MEDS ORDERED: LEVO500T47 PO (17:06)
[2019-03-20 17:53] VITALS: BP 98/66
[2019-03-20 18:10] VITALS: BP 116/66
[2019-03-20 19:30] VITALS: BP 121/79
== END 2019-03-20 19:55 | disposition home or self-care (01) | DRG 808 ==
LOC: ED 19:26 → 4NW 21:13
PROVIDERS: ADMIT Family Medicine; ATTEND Family Medicine
PROC: 30233R1 Transfusion of Nonautologous Platelets into Peripheral Vein, Percutaneous Approach (ICD-10-PCS; principal; 2019-03-20)
DX: D70.1 Agranulocytosis secondary to cancer chemotherapy (principal); R65.11 Systemic inflammatory response syndrome (SIRS) of non-infectious origin with acute organ dysfunction; D46.0 Refractory anemia without ring sideroblasts, so stated; K59.00 Constipation, unspecified; K64.9 Unspecified hemorrhoids; F12.90 Cannabis use, unspecified, uncomplicated; N40.0 Benign prostatic hyperplasia without lower urinary tract symptoms; R50.81 Fever presenting with conditions classified elsewhere; T45.1X5A Adverse effect of antineoplastic and immunosuppressive drugs, initial encounter; Z87.891 Personal history of nicotine dependence; Y92.098 Other place in other non-institutional residence as the place of occurrence of the external cause; Z82.49 Family history of ischemic heart disease and other diseases of the circulatory system; Z82.5 Family history of asthma and other chronic lower respiratory diseases; D46.9 Myelodysplastic syndrome, unspecified; D69.59 Other secondary thrombocytopenia
CPT/HCPCS: 36415; 71045; 80048; 81003; 82040; 83605; 83735; 84100; 84145; 85025; 85651; 86140; 86850; 86900; 87040; 87400; 93005; 96361; 96365; G0378; J2543; J1200; J1720; J7030; J7120; P9037

== ENCOUNTER 2019-05-10 07:22 | Day surgery (SDC) | payer MEDICARE ==
[~2019-05-10] VITALS: Ht 177.8 cm; Wt 85.2 kg
[2019-05-10 07:59] VITALS: BP 131/75
[2019-05-10] MEDS ORDERED: SODIUM CHLORIDE 0.9% 1,000 ML IV SCH (08:03)
[2019-05-10 08:26] LABS: MEAN CORPUSCULAR HEMOGLOBIN 30.9 pg (27.5-34.5); MEAN CORPUSCULAR HGB CONC 33.3 g/dL (33.2-36.2); MEAN CORPUSCULAR VOLUME 92.8 fL (81-97); RED BLOOD COUNT 2.42 x10^6/uL (4.38-5.82); RED CELL DISTRIBUTION WIDTH 18.5 % (9.4-14.8)
[2019-05-10 08:29] LABS: PLATELET COUNT 39 x10^3/uL (130-400)
[2019-05-10 08:45] LABS: MD YES
[2019-05-10 08:48] LABS: SEG#(MANUAL) 0.02 x10^3/uL (1.8-6.8); SEGS% (MANUAL) 1 % (42-75)
[2019-05-10 08:50] LABS: ANISOCYTOSIS 1+; EOS#(MANUAL) 0.02 x10^3/uL (0.0-0.4); EOS% (MANUAL) 1 % (1-7); LYMPH#(MANUAL) 1.96 x10^3/uL (1-3.4); LYMPHS% (MANUAL) 98 % (22-44); OVALOCYTES 1+
[2019-05-10 08:51] LABS: <PLATELET ESTIMATE> DECREASED; <PLT MORPHOLOGY> NORMAL PLT MORPH
[2019-05-10] MEDS ORDERED: FENTANYL PF 100 MCG/2ML ONE (09:27)
[2019-05-10] MEDS ORDERED: FLUMAZENIL 0.1 MG/1 ML, 5ML ONE (09:27)
[2019-05-10] MEDS ORDERED: MIDAZOLAM 1 MG/ML, 5ML ONE (09:27)
[2019-05-10] MEDS ORDERED: NALOXONE 1 MG/ML, 2ML ONE (09:28)
== END 2019-05-10 10:50 | disposition home or self-care (01) ==
LOC: OUT 07:22
PROVIDERS: ATTEND Internal Medicine Hematology & Oncology
DX: D46.0 Refractory anemia without ring sideroblasts, so stated (principal); D61.818 Other pancytopenia; Z79.899 Other long term (current) drug therapy; Z87.891 Personal history of nicotine dependence
CPT/HCPCS: 36415; 38222; 77012; 85025; 85097; 88237; 88264; 88280; 88305; 88311; 88313; 99156; 99157; J2250; J3010; J7030; J2310

== ENCOUNTER → 2020-03-25 | Outpatient (CLI) | payer MEDICARE ==
[~2020-03-25] MED LIST changes: +ELTR50TA PO; +LEVO750T26 PO; +ONDA8TAB9 PO
== END | disposition home or self-care (01) ==
LOC: CARD 13:57
PROVIDERS: ATTEND Specialist
DX: Z01.818 Encounter for other preprocedural examination (principal); D64.9 Anemia, unspecified; Z76.82 Awaiting organ transplant status
CPT/HCPCS: 93005; 94010; 94726; 94729

== ENCOUNTER 2020-04-26 20:21 | Inpatient (IN) | payer MEDICARE ==
[~2020-04-26] VITALS: Ht 177.8 cm; Wt 81.3 kg
--- NOTE | 2020-04-26 21:04 | NUR ---
pt came into ed tonight due to fever at home and cough beginning today. pt states and son tested +COVID, pt is isolating at other sons home. pt states he is SOB baseline due to MDS but cough is new. pt ambulated back to room with a smooth and steady gait, NAD, sitting up on gurney, labs drawn, COVID swabbed. Pt placed on spo2/bp/ecg monitoring CATE HARRIS at bs for eval and POC. WCTM.
[2020-04-26 21:15] LABS: MEAN CORPUSCULAR HEMOGLOBIN 32.2 pg (27.5-34.5); MEAN CORPUSCULAR HGB CONC 34.3 g/dL (33.2-36.2); MEAN PLATELET VOLUME 9.9 fL (7.4-10.4); RED BLOOD COUNT 2.67 x10^6/uL (4.38-5.82); RED CELL DISTRIBUTION WIDTH 17.5 % (9.4-14.8)
[2020-04-26 21:30] LABS: ALANINE AMINOTRANSFERASE 158 U/L (12-78); ALBUMIN 3.3 g/dL (3.4-5.0); ANION GAP 7 mmol/L (5-15); CALCIUM 8.3 mg/dL (8.5-10.1); CHLORIDE 108 mmol/L (98-107); CREATININE 1.06 mg/dL (0.7-1.3)
[2020-04-26 21:39] LABS: D-DIMER (DIC) 0.81 ug/mlFEU (0.00-0.52); PROTIME 11.5 Seconds (9.6-11.5)
[2020-04-26 21:39] LABS: MD YES; PLATELET COUNT 17 x10^3/uL (130-400)
[2020-04-26 21:48] LABS: ALKALINE PHOSPHATASE 97 U/L (45-117); BILIRUBIN,TOTAL 0.3 mg/dL (0.2-1.0); C-REACTIVE PROTEIN, QUANT 1.71 mg/dL (0.02-0.49); TOTAL PROTEIN 6.9 g/dL (6.4-8.2)
[2020-04-26 21:49] LABS: SEG#(MANUAL) 0.51 x10^3/uL (1.8-6.8); SEGS% (MANUAL) 22 % (42-75)
[2020-04-26 21:50] LABS: LYMPHS% (MANUAL) 74 % (22-44); MONOS#(MANUAL) 0.09 x10^3/uL (0.3-2.7); MONOS% (MANUAL) 4 % (2-9)
[2020-04-26 21:53] LABS: ANISOCYTOSIS 1+; OVALOCYTES 1+; TEAR DROPS 1+
--- NOTE | 2020-04-26 21:54 | NUR ---
pt medicated per mar, nad, appears comfortable, given warm blankets for comfort, critcal labs reported to [facility]. WCTM. waiting for lab results.
[2020-04-26 21:55] LABS: <PLATELET ESTIMATE> DECREASED; <PLT MORPHOLOGY> NORMAL PLT MORPH
[2020-04-26] MEDS ORDERED: POTASSIUM CHLORIDE 20 MEQ TAB.ER.PRT ONE (21:59)
[2020-04-26] MEDS ORDERED: POTASSIUM CHLORIDE 20 MEQ TAB.ER.PRT PO ONE (22:00)
[2020-04-26] MEDS ORDERED: SODIUM CHLORIDE 0.9% 1,000ML IVBOLUS ONE (22:00)
--- NOTE | 2020-04-26 22:11 | NUR ---
PT MEDICATED PER MAR, UPDATED ON POC. NAD, DENIES ADDITIONAL NEEDS AT THIS TIME. WAITING ON RAD READ, WCTM.
[2020-04-26] MEDS ORDERED: PIPERACILLIN/TAZO/PMX 4.5GM 100 ML IVPB ONE (22:30)
[2020-04-26] MEDS ORDERED: VANCOMYCIN PER PHARMACY MC ONE (22:30)
[2020-04-26] MEDS ORDERED: NS + 20MEQ KCL 1,000 ML IV ONE (23:00)
[2020-04-26] MEDS ORDERED: VANCOMYCIN 1,700 MG in SODIUM CHLORIDE 0.9% 250 ML IV ONE (23:00)
[2020-04-26] MEDS ORDERED: SODIUM CHLORIDE FLUSH 10ML SYR IVF PRN (23:00)
--- NOTE | 2020-04-26 23:21 | NUR ---
PT MEDICATED PER MAR, NAD, RESTING COMFORTABLY, DENIES ADDITIONAL QUESTIONS OR NEEDS AT THIS TIME. HOSPITAL BED REQUESTED, CALL LIGHT ON LAP, WCTM.
[2020-04-27] MEDS ORDERED: VANCOMYCIN PER PHARMACY MC PRN
[2020-04-27] MEDS ORDERED: MELATONIN 5 MG TABLET PO PRN
[2020-04-27] MEDS ORDERED: ONDANSETRON ODT 4 MG PO PRN
[2020-04-27] MEDS ORDERED: DOCUSATE 100 MG CAPSULE PO PRN
[2020-04-27] MEDS ORDERED: GUAIFENESIN/DM 200-20MG, 10ML UDC PO PRN
[2020-04-27] MEDS ORDERED: LIDODERM 5% PATCH TD PRN
[2020-04-27] MEDS ORDERED: LABETALOL 5MG/ML, 20ML IVPush PRN
[2020-04-27] MEDS ORDERED: TAMS-11 PO (00:10)
--- NOTE | 2020-04-27 00:28 | NUR ---
TASK RN: US AT BEDSIDE. VSS.
--- NOTE | 2020-04-27 01:45 | NUR ---
LATE ENTRY D/T PT CARE: PT RESTING ON HOSPITAL BED, NAD, APPEARS COMFORTABLE, EYES CLOSED, EVEN AND UNLABORED RESPIRATIONS, BED IN LOWEST, WCTM.
[2020-04-27] MEDS ORDERED: NS + 20MEQ KCL 1,000 ML IV ONE (02:49)
--- NOTE | 2020-04-27 03:00 | NUR ---
REPORT CALLED TO MATIAS LEVINE, PT BEING TRANSFERRED TO FLOOR AT THIS TIME. NAD, APPEARS COMFORTABLE, DENIES ADDITIONAL QUESTIONS OR NEED. NO PERSONAL BELONGINGS NOTED IN ROOM AFTER TRANSFER
[2020-04-27 03:12] VITALS: BP 114/75
[2020-04-27] MEDS ORDERED: PHARMACOKINETIC MONITORING MC PRN (03:30)
[2020-04-27 06:10] LABS: MEAN CORPUSCULAR HEMOGLOBIN 32.1 pg (27.5-34.5); MEAN CORPUSCULAR HGB CONC 34.3 g/dL (33.2-36.2); MEAN PLATELET VOLUME 10.1 fL (7.4-10.4); RED BLOOD COUNT 2.31 x10^6/uL (4.38-5.82); RED CELL DISTRIBUTION WIDTH 17.2 % (9.4-14.8)
[2020-04-27 06:12] LABS: ANION GAP 2 mmol/L (5-15); CALCIUM 7.7 mg/dL (8.5-10.1); CHLORIDE 114 mmol/L (98-107)
[2020-04-27 06:14] LABS: CREATININE 0.79 mg/dL (0.7-1.3)
[2020-04-27 06:49] VITALS: BP 100/59
[2020-04-27 06:53] LABS: PLATELET COUNT 13 x10^3/uL (130-400)
[2020-04-27 06:54] LABS: MD YES
[2020-04-27 06:58] LABS: BAND#(MANUAL) 0.12 x10^3/uL; BANDS%(MANUAL) 6 % (0-7); LYMPH#(MANUAL) 1.28 x10^3/uL (1-3.4); LYMPHS% (MANUAL) 64 % (22-44); MONOS% (MANUAL) 5 % (2-9); SEGS% (MANUAL) 25 % (42-75)
[2020-04-27 07:00] LABS: <PLATELET ESTIMATE> DECREASED; ANISOCYTOSIS 1+; OVALOCYTES 1+; TEAR DROPS 1+
[2020-04-27] MEDS ORDERED: PIPERACILLIN/TAZO/PMX 4.5GM 100 ML IV SCH (07:00)
[2020-04-27] MEDS ORDERED: INSULIN LISPRO 100 UNITS/ML, PEN SQ-INSULIN SCH (07:00)
[2020-04-27 07:01] LABS: <PLT MORPHOLOGY> NORMAL PLT MORPH
[2020-04-27] MEDS: CEFEPIME 2 GM in DEXTROSE 5% 100 ML IV SCH ×2 (10:47→18:34)
[2020-04-27 12:24] VITALS: BP 130/66
[2020-04-27] MEDS ORDERED: VANCOMYCIN 1,700 MG in SODIUM CHLORIDE 0.9% 250 ML IV SCH (18:00)
[2020-04-27 19:09] VITALS: BP 112/71
[2020-04-27] MEDS: ACETAMINOPHEN 325 MG TABLET PO PRN (19:58)
[2020-04-28] VITALS (10 sets, daily range): BP systolic 103–148; BP diastolic 63–82
[2020-04-28] MEDS: CEFEPIME 2 GM in DEXTROSE 5% 100 ML IV SCH ×3 (03:46→18:34)
[2020-04-28 10:31] LABS: MEAN CORPUSCULAR HGB CONC 34.1 g/dL (33.2-36.2); MEAN PLATELET VOLUME 10.7 fL (7.4-10.4); RED BLOOD COUNT 2.37 x10^6/uL (4.38-5.82); RED CELL DISTRIBUTION WIDTH 17.5 % (9.4-14.8)
[2020-04-28 10:39] LABS: MD YES; PLATELET COUNT 10 x10^3/uL (130-400)
[2020-04-28 11:10] LABS: ANISOCYTOSIS 1+; BAND#(MANUAL) 0.03 x10^3/uL; BANDS%(MANUAL) 2 % (0-7); LYMPH#(MANUAL) 0.88 x10^3/uL (1-3.4); LYMPHS% (MANUAL) 52 % (22-44); MONOS#(MANUAL) 0.14 x10^3/uL (0.3-2.7); MONOS% (MANUAL) 8 % (2-9); OVALOCYTES 1+; SEG#(MANUAL) 0.65 x10^3/uL (1.8-6.8); SEGS% (MANUAL) 38 % (42-75); TEAR DROPS 1+
[2020-04-28 11:11] LABS: <PLATELET ESTIMATE> DECREASED; <PLT MORPHOLOGY> QNS FOR PLT MORPH
[2020-04-28] MEDS ORDERED: methylPREDNISolone SOD SUCC 40 MG/ML IV ONE (13:00)
[2020-04-28] MEDS ORDERED: DIPHENHYDRAMINE 50 MG CAPSULE PO PRN (13:00)
[2020-04-28] MEDS: ACETAMINOPHEN 325 MG TABLET PO PRN (13:17)
[2020-04-28] MEDS ORDERED: HYDROCORTISONE 100 MG INJ. IVPush ONE (13:30)
[2020-04-28] MEDS ORDERED: DIPHENHYDRAMINE 25 MG CAPSULE PO PRN (13:30)
[2020-04-29] VITALS (7 sets, daily range): BP systolic 112–128; BP diastolic 62–74
[2020-04-29] MEDS: CEFEPIME 2 GM in DEXTROSE 5% 100 ML IV SCH ×2 (03:14→10:26)
[2020-04-29] MEDS: ASCORBIC ACID 250 MG TAB PO SCH ×2 (08:57→16:36)
[2020-04-29] MEDS ORDERED: ZINC SULFATE 220 MG CAPSULE PO SCH (09:00)
[2020-04-29] MEDS ORDERED: CHOLECALCIFEROL 5,000u TAB PO SCH (09:00)
[2020-04-29 09:03] LABS: MEAN CORPUSCULAR HEMOGLOBIN 32.2 pg (27.5-34.5); MEAN CORPUSCULAR HGB CONC 34.6 g/dL (33.2-36.2); MEAN PLATELET VOLUME 10.2 fL (7.4-10.4); PLATELET COUNT 54 x10^3/uL (130-400); RED BLOOD COUNT 2.21 x10^6/uL (4.38-5.82); RED CELL DISTRIBUTION WIDTH 17.2 % (9.4-14.8)
[2020-04-29 09:12] LABS: MD YES
[2020-04-29 09:40] LABS: SEG#(MANUAL) 0.78 x10^3/uL (1.8-6.8); SEGS% (MANUAL) 37 % (42-75)
[2020-04-29 09:44] LABS: <PLATELET ESTIMATE> DECREASED; <PLT MORPHOLOGY> NORMAL PLT MORPH; ANISOCYTOSIS 1+; BAND#(MANUAL) 0.04 x10^3/uL; BANDS%(MANUAL) 2 % (0-7); LYMPHS% (MANUAL) 57 % (22-44); MONOS#(MANUAL) 0.08 x10^3/uL (0.3-2.7); MONOS% (MANUAL) 4 % (2-9); OVALOCYTES 1+; TEAR DROPS 1+
[2020-04-29] MEDS ORDERED: DIPHENHYDRAMINE 25 MG CAPSULE PO PRN (10:00)
[2020-04-29] MEDS ORDERED: HYDROCORTISONE 100 MG INJ. IVPush ONE (10:00)
[2020-04-29] MEDS: ACETAMINOPHEN 325 MG TABLET PO PRN (10:41)
[2020-04-29] MEDS ORDERED: AZIT500T PO (14:17)
[2020-04-29] MEDS ORDERED: CHOL500045 PO (14:17)
[2020-04-29] MEDS ORDERED: ASCO1500 PO (14:17)
[2020-04-29] MEDS ORDERED: CEFD300C37 PO (14:17)
[2020-04-29] MEDS ORDERED: ZINC220C7 PO (14:17)
== END 2020-04-29 18:16 | disposition home or self-care (01) | DRG 871 ==
LOC: ED 21:52 → EDIP 22:51 → 3N 04-27 03:02
PROVIDERS: ADMIT Family Medicine; ATTEND Hospitalist
PROC: 30233R1 Transfusion of Nonautologous Platelets into Peripheral Vein, Percutaneous Approach (ICD-10-PCS; principal; 2020-04-28)
PROC: 30233N1 Transfusion of Nonautologous Red Blood Cells into Peripheral Vein, Percutaneous Approach (ICD-10-PCS; 2020-04-29)
DX: A41.89 Other specified sepsis (principal); U07.1 COVID-19; J12.89 Other viral pneumonia; D61.818 Other pancytopenia; D69.3 Immune thrombocytopenic purpura; D46.9 Myelodysplastic syndrome, unspecified; D70.9 Neutropenia, unspecified; E87.6 Hypokalemia; R73.9 Hyperglycemia, unspecified; R74.01 Elevation of levels of liver transaminase levels; F12.90 Cannabis use, unspecified, uncomplicated; K80.20 Calculus of gallbladder without cholecystitis without obstruction; N40.0 Benign prostatic hyperplasia without lower urinary tract symptoms; R50.81 Fever presenting with conditions classified elsewhere; Z82.49 Family history of ischemic heart disease and other diseases of the circulatory system; Z87.891 Personal history of nicotine dependence
CPT/HCPCS: 36415; 71045; 76700; 80048; 80053; 80074; 82728; 82962; 83605; 83615; 84145; 85025; 85049; 85379; 85384; 85610; 85730; 86140; 86850; 86900; 86902; 86922; 86923; 87040; 87521; 93005; 96361; 96374; 96375; 99285; G0378; J2543; J3370; J3480; J1720; J7030; J7050; P9037; P9040; Q0163; U0003

== ENCOUNTER 2020-05-20 09:44 | Emergency (ER) | payer MEDICARE ==
[2020-05-20] VITALS (8 sets, daily range): BP systolic 115–137; BP diastolic 66–78
[~2020-05-20] VITALS: Ht 177.8 cm; Wt 79.6 kg
[~2020-05-20 09:44] MED LIST changes: +ASCO1500 PO; +AZIT500T PO; +CEFD300C37 PO; +CHOL500045 PO; +PANT40TA6 PO; +TAMS-11 PO; +ZINC220C7 PO
[2020-05-20 11:10] LABS: MEAN CORPUSCULAR HEMOGLOBIN 30.7 pg (27.5-34.5); MEAN CORPUSCULAR HGB CONC 33.7 g/dL (33.2-36.2); MEAN PLATELET VOLUME 11.6 fL (7.4-10.4); RED BLOOD COUNT 2.11 x10^6/uL (4.38-5.82); RED CELL DISTRIBUTION WIDTH 15.9 % (9.4-14.8)
--- NOTE | 2020-05-20 11:14 | NUR ---
PT CAME IN STATING HE NEEDS PLT INFUSION. 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 I HAD A POSITIVE COVID TEST ON MAY 01 AND THEY WONT TAKE ME IN THE INFUSION CENTER YET." PT DENIES COUGH OR ANY OTHER RESP SYMPTOMS. PT RESTING IN [facility]. BLANKET PROVIDED.
[2020-05-20 11:33] LABS: MD YES
[2020-05-20 11:34] LABS: PLATELET COUNT 6 x10^3/uL (130-400)
[2020-05-20 11:35] LABS: <PLATELET ESTIMATE> DECREASED; <PLT MORPHOLOGY> QNS FOR PLT MORPH; ANISOCYTOSIS 1+; EOS#(MANUAL) 0.02 x10^3/uL (0.0-0.4); EOS% (MANUAL) 1 % (1-7); LYMPH#(MANUAL) 0.96 x10^3/uL (1-3.4); LYMPHS% (MANUAL) 60 % (22-44); MONOS% (MANUAL) 6 % (2-9); OVALOCYTES 1+; SEG#(MANUAL) 0.53 x10^3/uL (1.8-6.8); SEGS% (MANUAL) 33 % (42-75); TEAR DROPS 1+
--- NOTE | 2020-05-20 11:58 | NUR ---
DR. GUNN AT BEDSIDE. REPORTED RESULTS AND PLAN OF CARE. QUESTIONS ANSWERED.
[2020-05-20] MEDS ORDERED: methylPREDNISolone SOD SUCC 125 MG/2 ML IVPush ONE (12:00)
[2020-05-20] MEDS ORDERED: ACETAMINOPHEN 325 MG TABLET PO ONE (12:00)
[2020-05-20] MEDS ORDERED: DIPHENHYDRAMINE 50 MG/ML, 1ML IVPush ONE (12:00)
[2020-05-20] MEDS ORDERED: DIPHENHYDRAMINE 50 MG/ML, 1ML ONE (12:01)
[2020-05-20] MEDS ORDERED: methylPREDNISolone SOD SUCC 40 MG/ML ONE (12:01)
[2020-05-20] MEDS ORDERED: ACETAMINOPHEN 325 MG TABLET ONE (12:01)
--- NOTE | 2020-05-20 13:12 | NUR ---
PT RESTING ON GURNEY. PRETREATS ADMIN. PLATELETS INFUSING. VSS. NAD. WILL CONTINUE TO MONITOR
--- NOTE | 2020-05-20 14:03 | NUR ---
PT UP TO USE RESTROOM. PT DENIES ANY SYMPTOMS AT THIS TIME
--- NOTE | 2020-05-20 14:19 | NUR ---
PT RESTING ON GURNEY. PLTS CONTINUE TO INFUSE. PT STATES HE FEEL A LITTLE "ANTSY" FROM THE BENADRYL. STATES NO PAIN AT THIS TIME. STATES NO ADDITIONAL NEEDS AT THIS TIME
--- NOTE | 2020-05-20 17:06 | NUR ---
pt resting in bed. vss. appears in no acute distress
--- NOTE | 2020-05-20 17:12 | NUR ---
2ND UNIT OF [facility] IS INFUSING
--- NOTE | 2020-05-20 17:53 | NUR ---
2 UNIT [facility] INFUSED. VSS. NAD. RESTING ON GURNEY. PT STATES HE FEELS BETTER.
--- NOTE | 2020-05-20 18:26 | NUR ---
PT AMBULATED TO DISCHARGE WITHOUT INCIDENT
== END 2020-05-20 18:27 | disposition home or self-care (01) ==
LOC: ED 09:57
DX: U07.1 COVID-19 (principal); D46.9 Myelodysplastic syndrome, unspecified; D61.818 Other pancytopenia; Z85.9 Personal history of malignant neoplasm, unspecified
CPT/HCPCS: 36415; 36430; 85025; 86850; 86900; 86902; 86922; 87635; 96374; 96375; 99285; J1200; J2930; P9037; P9040; 86923

== ENCOUNTER → 2020-06-06 | Outpatient (CLI) | payer MEDICARE ==
[~2020-06-06] MED LIST changes: +REGADENOSON 0.4 MG/5 ML SYRINGE ONE
== END | disposition home or self-care (01) ==
LOC: CFH 12:14
PROVIDERS: ATTEND Nurse Practitioner
DX: Z01.818 Encounter for other preprocedural examination (principal); D46.9 Myelodysplastic syndrome, unspecified
CPT/HCPCS: 78452; 93017; A9502; J2785

== ENCOUNTER → 2020-06-27 | Outpatient (CLI) | payer MEDICARE ==
[~2020-06-27] MED LIST changes: -REGADENOSON 0.4 MG/5 ML SYRINGE ONE
== END | disposition home or self-care (01) ==
LOC: CFH 12:16
PROVIDERS: ATTEND Nurse Practitioner
DX: R91.8 Other nonspecific abnormal finding of lung field (principal); R06.09 Other forms of dyspnea
CPT/HCPCS: 71250

== ENCOUNTER 2020-09-08 09:38 | Outpatient (CLI) | payer MEDICARE ==
[~2020-09-08 09:38] MED LIST changes: -VORI200T2 PO; +VORI200T3 PO
[2021-02-05] MEDS ORDERED: TACR0.5C4 PO (09:41)
[2021-02-05] MEDS ORDERED: CHOL10003 PO (09:41)
[2021-02-05] MEDS ORDERED: ACYC-40 PO (09:41)
[2021-02-05] MEDS ORDERED: ATOV750O PO (09:41)
[2021-02-05] MEDS ORDERED: ISAV186C2 PO (09:41)
[2021-02-05] MEDS ORDERED: INSU100V8 SQ (09:41)
[2021-02-05] MEDS ORDERED: URSO300C27 PO (09:41)
[2021-02-05] MEDS ORDERED: MAGN400T9 PO (09:41)
[2021-02-05] MEDS ORDERED: LETE480T PO (09:41)
== END 2020-09-08 23:59 | disposition home or self-care (01) ==
LOC: CFH 09:38
PROVIDERS: ATTEND Internal Medicine
DX: R91.8 Other nonspecific abnormal finding of lung field (principal); J84.9 Interstitial pulmonary disease, unspecified; R06.09 Other forms of dyspnea; I25.10 Atherosclerotic heart disease of native coronary artery without angina pectoris; M85.88 Other specified disorders of bone density and structure, other site; J98.4 Other disorders of lung; Z86.16 Personal history of COVID-19
CPT/HCPCS: 71250

== ENCOUNTER 2020-09-25 12:08 | Outpatient (CLI) | payer SELFPAY ==
[~2020-09-25 12:08] MED LIST changes: +VORI200T2 PO; -VORI200T3 PO
== END 2020-09-25 23:59 | disposition home or self-care (01) ==
LOC: LAB 12:08
DX: Z00.00 Encounter for general adult medical examination without abnormal findings (principal)
CPT/HCPCS: 36415

== ENCOUNTER 2021-01-29 11:22 | Outpatient (CLI) | payer MEDICARE ==
[~2021-01-29 11:22] MED LIST changes: -VORI200T2 PO; +VORI200T3 PO
[2021-01-29 11:51] LABS: BASOPHILS % (AUTO) 1 % (0-1); EOSINOPHILS % (AUTO) 4 % (1-7); LYMPHOCYTES % (AUTO) 8 % (22-44); MEAN CORPUSCULAR HEMOGLOBIN 33.9 pg (27.5-34.5); MEAN CORPUSCULAR HGB CONC 32.9 g/dL (33.2-36.2); MEAN PLATELET VOLUME 8.2 fL (7.4-10.4); MONOCYTES % (AUTO) 12 % (2-9); NEUTROPHILS % (AUTO) 75 % (42-75); PLATELET COUNT 162 x10^3/uL (130-400); RED BLOOD COUNT 3.76 x10^6/uL (4.38-5.82); RED CELL DISTRIBUTION WIDTH 28.1 % (9.4-14.8)
[2021-01-29 11:57] LABS: ALANINE AMINOTRANSFERASE 14 U/L (12-78); ALBUMIN 3.9 g/dL (3.4-5.0); CALCIUM 9.1 mg/dL (8.5-10.1); CREATININE 0.82 mg/dL (0.7-1.3)
[2021-01-29 12:21] LABS: ALKALINE PHOSPHATASE 90 U/L (45-117); ANION GAP 6 mmol/L (5-15); BILIRUBIN,TOTAL 0.4 mg/dL (0.2-1.0); CHLORIDE 109 mmol/L (98-107); TOTAL PROTEIN 7.3 g/dL (6.4-8.2)
[2021-01-29 13:10] LABS: ANISOCYTOSIS 2+
[2021-01-29 13:11] LABS: OVALOCYTES 1+; POLYCHROMASIA 1+; TEAR DROPS 1+
[2021-01-29 13:12] LABS: <PLATELET ESTIMATE> ADEQUATE; <PLT MORPHOLOGY> NORMAL PLT MORPH
[2021-02-05] MEDS ORDERED: URSO300C27 PO (09:41)
[2021-02-05] MEDS ORDERED: ACYC-40 PO (09:41)
[2021-02-05] MEDS ORDERED: MAGN400T9 PO (09:41)
[2021-02-05] MEDS ORDERED: TACR0.5C4 PO (09:41)
[2021-02-05] MEDS ORDERED: CHOL10003 PO (09:41)
[2021-02-05] MEDS ORDERED: LETE480T PO (09:41)
[2021-02-05] MEDS ORDERED: ATOV750O PO (09:41)
[2021-02-05] MEDS ORDERED: INSU100V8 SQ (09:41)
[2021-02-05] MEDS ORDERED: ISAV186C2 PO (09:41)
== END 2021-01-29 23:59 | disposition home or self-care (01) ==
LOC: LAB 11:22
PROVIDERS: ATTEND Internal Medicine Hematology & Oncology
DX: D46.9 Myelodysplastic syndrome, unspecified (principal)
CPT/HCPCS: 36415; 80053; 80197; 83735; 85025; 87497; 87799